=== PATIENT | male | born 1990 | race Caucasian/White ===

== ENCOUNTER 2021-12-08 17:53 | Emergency (ER) | payer OTHER ==
[~2021-12-08] VITALS: Ht 172.7 cm; Wt 95.3 kg
[2021-12-11] MEDS ORDERED: CIPRO500 MG PO (12:35)
[2021-12-11] MEDS ORDERED: VISTARIL50 MG PO (12:39)
== END 2021-12-08 22:56 | disposition home or self-care (01) ==
LOC: ER 17:53
DX: S91.342A Puncture wound with foreign body, left foot, initial encounter (principal); W45.8XXA Other foreign body or object entering through skin, initial encounter; Y93.9 Activity, unspecified; Y92.9 Unspecified place or not applicable; Y99.9 Unspecified external cause status; B96.89 Other specified bacterial agents as the cause of diseases classified elsewhere

== ENCOUNTER → 2021-12-11 | Emergency (ER) | payer OTHER ==
[~2021-12-11] VITALS: Ht 172.7 cm; Wt 95.3 kg
[~2021-12-11] MED LIST: CIPRO500 MG PO; VISTARIL50 MG PO
== END | disposition home or self-care (01) ==
LOC: ER 10:21
DX: L02.612 Cutaneous abscess of left foot (principal); S91.342A Puncture wound with foreign body, left foot, initial encounter; B95.61 Methicillin susceptible Staphylococcus aureus infection as the cause of diseases classified elsewhere; B96.89 Other specified bacterial agents as the cause of diseases classified elsewhere; X58.XXXA Exposure to other specified factors, initial encounter; Y93.9 Activity, unspecified; Y92.89 Other specified places as the place of occurrence of the external cause; Y99.9 Unspecified external cause status